=== PATIENT | male | born 1975 | race Caucasian/White ===

== ENCOUNTER 2020-11-22 13:50 | Inpatient (IN) | payer BC, SELFPAY ==
[2020-11-22 13:51] VITALS: BMI 31.6
[2020-11-22 14:01] VITALS: BMI 31.7
[2020-11-22 14:06] VITALS: BP 146/85; PULSE 94; RESP 18; TEMP 37.4; O2SAT 95
[2020-11-22] MEDS: 0.9% Saline Lock 10 ML Syringe IV (15:41)
[2020-11-22] MEDS: 0.9% Normal Saline 1,000 ML 100 ML IV (15:42)
--- NOTE | 2020-11-22 16:53 | HP.PCM_ITS ---
History and Physical Date of Admission: 11/22/20 Chief Complaint: abdominal pain History of Present Illness: Diony Cordova is a 45 year old male with history of multiple chronic medical problems who presents with Abdominal Pain and Diarrhea. ? - Symptoms began Wednesday (2 days ago). - Severity: 04/22 - Timing: constant - Quality: sharp and pressure - Abdominal Pain is exacerbated by palpation Diarrhea is exacerbated by nothing. - Abdominal Pain and Diarrhea is not exacerbated by rest. - Symptoms are associated with chills. - Symptoms are not associated with chest pain, fever, nausea, rash, shortness of breath, URI symptoms, vomiting, dark or bloody stools, dysuria, hematuria, testicular pain, leg pain, back pain. - Improved by nothing. - Not improved by anything. Patient presents stating that he started with sharp lower abdominal pain on Wednesday feeling like he needed to have a bowel movement and has been having multiple episodes of watery, non-bloody diarrhea and persistent lower abdominal pain since. He denies any known sick contacts. No recent travel. No fevers, but does feel chilled. No suspicious food intake. He has not been prescribed antibiotics recently, but he notes that he thought he had a left ear infection as he was having crackling in his left ear and was evaluated for his symptoms and told he had an eustachian tube dysfunction. He was told he did not have an ear infection and was started on nasal spray. He states he did take a dose of his daughter's Augmentin on Wednesday hours prior to symptoms starting, he states he took another dose of Augmentin on , as well. He states his ear is feeling better, and is not having any symptoms with his ear currently. No previous abdominal surgeries. Denies any dysuria or hematuria. No testicu lar pain. CT abdomen pelvis 11/22/2020: RESULT: ?Liver: No mass. A 0.3 cm hypoattenuating focus in the superior segment 4 a and 5 are too small to adequately characterize but statistically benign. ?Biliary: No bile duct dilation. Gallbladder is unremarkable. ?Spleen: Mild splenomegaly of 14.5 cm in AP diameter. ?Pancreas: No mass or duct dilation. ?Adrenals: No mass. ?Kidneys: Symmetric nephrograms. No hydronephrosis or nephrolithiasis. ?GI tract: No dilation or wall thickening. Appendix is normal. Focal inflammatory changes associated to the diverticula in the sigmoid colon at the mid pelvis. There is wall thickening with mild loculated gas adjacent to the segment of wall thickening suggesting microperforation with phlegmonous changes and early 1.5 cm abscess. ?Lymph nodes: No abdominal or pelvic lymphadenopathy. ?Mesentery/Peritoneum: No ascites or mass. ?Retroperitoneum: No mass. ?Vasculature: The celiac axis and SMA are patent. The portal vein and branches, splenic vein, SMV, and hepatic veins are patent. ?Pelvis: No mass, ascites or fluid collection. ?Bones/Soft Tissues: No acute osseous abnormalities. ?Lower thorax: No consolidation or pleural effusion. Minimal hypoventilation in the posterior lung bases. Visualized portions of the heart are unremarkable. ?IMPRESSION: ?Focal acute diverticulitis of the sigmoid colon with mild adjacent phlegmonous changes and small early abscess formation. Past Medical History: elevated cholesterol BMI 31 Past Surgical History: denies Medications: none Allergies: Has no known drug allergies Social history: TOB use denies Review of Systems: Constitutional: Positive for chills. Negative for fever. HENT: Negative for ear discharge, ear pain, sore throat and trouble swallowing. Respiratory: Negative for shortness of breath. Cardiovascular: Negative for chest pain. Gastrointestinal: Positive for abdominal pain and diarrhea. Negative for anal bleeding, blood in stool, constipation, nausea and vomiting. Genitourinary: Negative for dysuria, flank pain, hematuria and testicular pain. Musculoskeletal: has arthritis of knee, occasional back pain but none presently. Skin: Negative for rash. Neurological: has carpal tunnel symptoms, Negative for syncope, weakness and numbness. Psychiatric/Behavioral: Negative for agitation and confusion. Physical examination: BP 136/78 Pulse 86 Temp 97.6 Resp 16 Wt 204 lb (92.5kg) SpO2 98% O2 Therapy: Room Air Constitutional: General: He is not in acute distress. Appearance: He is not ill-appearing, toxic-appearing or diaphoretic. HENT: Head: Normocephalic and atraumatic. Right Ear: Tympanic membrane, ear canal and external ear normal. Left Ear: Tympanic membrane, ear canal and external ear normal. Mouth/Throat: Mouth: Mucous membranes are moist. Eyes: General: No scleral icterus. Conjunctiva/sclera: Conjunctivae normal. Cardiovascular: Rate and Rhythm: Normal rate and regular rhythm. Pulses: Normal pulses. Pulmonary: Effort: Pulmonary effort is normal. Breath sounds: Normal breath sounds. Abdominal: General: Abdomen is flat. Bowel sounds are normal. There is no distension. Palpations: Abdomen is soft. Tenderness: There is abdominal tenderness in the right lower quadrant, suprapubic area and left lower quadrant. There is rebound. There is no right CVA tenderness, left CVA tenderness or guarding. Positive signs include McBurney's sign. Negative signs include Mckeon's sign. Musculoskeletal: Right lower leg: No edema. Left lower leg: No edema. Skin: General: Skin is warm and dry. Capillary Refill: Capillary refill takes less than 2 seconds. Findings: No rash. Neurological: General: No focal deficit present. Mental Status: He is alert and oriented to person, place, and time. GCS: GCS eye subscore is 4. GCS verbal subscore is 5. GCS motor subscore is 6. Psychiatric: Mood and Affect: Mood normal. Behavior: Behavior normal. Labs reviewed. White count is 16.34, lactate is normal at 0.7 BMP shows a glucose of 104, otherwise no acute findings. UA shows no signs of infection Impression: diverticulitis with abscess Discussion/Plan: I have discussed the above with the patient. No surgical intervention required at this point. I will admit patient to hospital for - IV antibiotics, clear liquid diet, pain control with narcotics and serial abdominal examinations I have answered all questions to the patient?s satisfaction and the patient has no further questions.
[2020-11-22] MEDS: Acetaminophen 325 MG Tablet 650 MG PO (18:50)
[2020-11-22 20:00] VITALS: BP 140/78; PULSE 82; RESP 18; TEMP 37.2; O2SAT 96
[2020-11-23 02:03] VITALS: BP 116/78; PULSE 81; RESP 18; TEMP 36.6; O2SAT 98
[2020-11-23] MEDS: 0.9% Normal Saline 1,000 ML 100 ML IV ×2 (02:08→12:01)
[2020-11-23 10:29] VITALS: BP 148/94; PULSE 82; RESP 18; TEMP 36.8; O2SAT 97
[2020-11-23] MEDS: Acetaminophen 325 MG Tablet 650 MG PO ×2 (10:36→17:30)
--- NOTE | 2020-11-23 12:07 | PCM.PN.SRG ---
Subjective: patient feels slightly improved, feeling hungry, bowel movements more formed - Physical Exam Vitals/I&O's: Vital Signs Temp Pulse Resp BP Pulse Ox 98.2 F 82 18 148/94 H 97 11/23/20 10:29 11/23/20 10:29 11/23/20 10:29 11/23/20 10:29 11/23/20 10:29 Oxygen Delivery Method Room Air Weight: 91.8 kg Body Mass Index (BMI) 31.6 Intake and Output for Last 24 Hours 11/21/20 11/22/20 11/23/20 23:59 23:59 23:59 Intake Total 0 / 0 2745.58 / 2745.58 Balance 0 / 0 2745.58 / 2745.58 General: Alert, Oriented x3 Oral: Moist Mucosa Neck: Supple Lungs: Normal air movement Abdomen: Soft, - - much less tender than yesterday, but still with rebound, less guarding Current Medications Acetaminophen (Acetaminophen 325 Mg Tablet) 650 mg PO Q4H PRN PRN PRN Reason: Pain Score 1-10 Last Admin: 11/23/20 10:36 Dose: 650 mg Documented by: Hydrocodone Bitart/Acetaminophen (Hydrocodone Bitartrate/Apap 5/325 Tablet) 1 tablet PO Q4H PRN PRN PRN Reason: Pain Score 1-5 Piperacillin Sod/Tazobactam (Sod 3.375 gm/ Sodium Chloride) 50 mls @ 12.5 mls/hr IV Q8 ELSY Last Infusion: 11/23/20 10:00 Dose: Infused Documented by: Sodium Chloride () 250 mls @ 15 mls/hr IV .[id number] PRN PRN Reason: Saline Flush Last Infusion: 11/23/20 05:58 Dose: 0 mls/hr Documented by: Sodium Chloride () 250 mls @ 15 mls/hr IV .[id number] PRN PRN Reason: Additional IVPB Infusion Sodium Chloride () 1,000 mls @ 100 mls/hr IV .Q10H ELSY Last Admin: 11/23/20 12:01 Dose: 100 mls/hr Documented by: Melatonin (Melatonin 3 Mg Tablet) 3 mg PO QHS PRN PRN Reason: INSOMNIA Morphine Sulfate (Morphine 4 Mg/Ml Syringe) 4 mg IV Q2H PRN PRN PRN Reason: Pain Score 6-10 Ondansetron HCl (Ondansetron 4 Mg/2 Ml Vial) 4 mg IV Q8H PRN PRN PRN Reason: NAUSEA/VOMITING Sodium Chloride (0.9% Saline Lock 10 Ml Syringe) 10 - 40 ml IV UD PRN PRN Reason: SALINE FLUSH Last Admin: 11/22/20 15:41 Dose: 10 ml Documented by: Medical Necessity - Tobacco Use Smoking Status: Never smoker Tobacco Use: Non-smoker Assessment/Plan Impression: acute diverticulitis with abscess Plan: continue IV antibiotics - hospitalize through the night - will reassess tomorrow morning patient is requiring minimal pain control continue clear liquid diet patient is encouraged to ambulate, can walk around in the hallways
[2020-11-23 13:45] VITALS: BP 145/79; PULSE 81; RESP 16; TEMP 36.9; O2SAT 97
[2020-11-23 17:22] VITALS: BP 128/99; PULSE 80; RESP 18; TEMP 36.7; O2SAT 97
--- NOTE | 2020-11-23 17:39 | CM.UR ---
RN CM Assessment Introduced role of RN CM to patient.? Patient is alert, oriented and able?to participate in RN CM Assessment. ?Care providers, pharmacy, and demographics verified. Presentation: abd pain Admit Dx: diverticulitis Re-Admit: none Barriers/Issues: none PCP: Dr. ford Specialists: None Preferred Pharmacy: [facility] Insurance: [employer] Rx Benefit:? Yes ?LNOK: , [place] LW/HPOA: No, declined additional information. Living Arrangements:? first floor ADL?s: independent Transportation: self and DME: None HHC: None SNF: None Goal: Home, denies needs. DC PLAN: Home, no need anticipated. Alerted patient that case management will remain available should any needs arise. Verb understanding. Theodora Degroot RN, CCM.
[2020-11-23 21:11] VITALS: BP 139/83; PULSE 61; RESP 18; TEMP 36.7; O2SAT 99
[2020-11-24] MEDS: 0.9% Normal Saline 1,000 ML 100 ML IV (00:04)
[2020-11-24 04:11] VITALS: BP 139/83; PULSE 79; RESP 18; TEMP 36.8; O2SAT 99
[2020-11-24 09:20] VITALS: BP 136/97; PULSE 77; RESP 18; TEMP 36.5; O2SAT 97
--- NOTE | 2020-11-24 11:58 | PCM.PN.SRG ---
Subjective: patient feels much improved, has minimal tenderness to pressure applied to area, is able to bounce up and down without abdominal pain, feels hungry, wants to go home - Physical Exam Vitals/I&O's: Vital Signs Temp Pulse Resp BP Pulse Ox 97.7 F L 77 18 136/97 H 97 11/24/20 09:20 11/24/20 09:20 11/24/20 09:20 11/24/20 09:20 11/24/20 09:20 Oxygen Delivery Method Room Air Weight: 91.8 kg Body Mass Index (BMI) 31.6 Intake and Output for Last 24 Hours 11/22/20 11/23/20 11/25/20 23:59 23:59 00:59 Intake Total 0 / 0 4769.08 / 4769.08 700 / 700 Balance 0 / 0 4769.08 / 4769.08 700 / 700 General: Alert, Oriented x3 HEENT: Atraumatic Oral: Moist Mucosa Neck: Supple Lungs: Normal air movement Abdomen: Soft - still with minimal tenderness, but no guarding Current Medications Acetaminophen (Acetaminophen 325 Mg Tablet) 650 mg PO Q4H PRN PRN PRN Reason: Pain Score 1-10 Last Admin: 11/23/20 17:30 Dose: 650 mg Documented by: Hydrocodone Bitart/Acetaminophen (Hydrocodone Bitartrate/Apap 5/325 Tablet) 1 tablet PO Q4H PRN PRN PRN Reason: Pain Score 1-5 Piperacillin Sod/Tazobactam (Sod 3.375 gm/ Sodium Chloride) 50 mls @ 12.5 mls/hr IV Q8 ELSY Last Infusion: 11/24/20 09:50 Dose: Infused Documented by: Sodium Chloride () 250 mls @ 15 mls/hr IV .[id number] PRN PRN Reason: Saline Flush Last Infusion: 11/23/20 21:20 Dose: 0 mls/hr Documented by: Sodium Chloride () 250 mls @ 15 mls/hr IV .[id number] PRN PRN Reason: Additional IVPB Infusion Sodium Chloride () 1,000 mls @ 100 mls/hr IV .Q10H ELSY Last Admin: 11/24/20 00:04 Dose: 100 mls/hr Documented by: Melatonin (Melatonin 3 Mg Tablet) 3 mg PO QHS PRN PRN Reason: INSOMNIA Morphine Sulfate (Morphine 4 Mg/Ml Syringe) 4 mg IV Q2H PRN PRN PRN Reason: Pain Score 6-10 Ondansetron HCl (Ondansetron 4 Mg/2 Ml Vial) 4 mg IV Q8H PRN PRN PRN Reason: NAUSEA/VOMITING Sodium Chloride (0.9% Saline Lock 10 Ml Syringe) 10 - 40 ml IV UD PRN PRN Reason: SALINE FLUSH Last Admin: 11/22/20 15:41 Dose: 10 ml Documented by: Medical Necessity - Tobacco Use Smoking Status: Never smoker Tobacco Use: Non-smoker Assessment/Plan Impression: acute diverticulitis with abscess Plan: will d/c to home continue with po antibiotics stay on liquid type diet for a couple of days and then advance slowly, low residue diet for two weeks consider colonoscopy in future
--- NOTE | 2020-11-24 12:01 | DS.PCM_ITS ---
Discharge Summary Date of Admission: 11/22/20 Date of Discharge: 11/24/20 Summary: 45 y/o WM presents with sudden onset of left lower quadrant abdominal pain last week, not improving and therefore presented to [facility] ED. Found to have elevated WBC with CT scan revealing acute diverticulitis with small abscess. Patient wanted to be admitted at [facility] and was accepted for admission. Treated with IV Zosyn for at least two days and liquid diet. Pain resolved by Hospital day #2. Discharged on po antibiotics and liquid diet to advance slowly at home - Physical Exam Vitals/I&O's: Vital Signs Temp Pulse Resp BP Pulse Ox 97.7 F L 77 18 136/97 H 97 11/24/20 09:20 11/24/20 09:20 11/24/20 09:20 11/24/20 09:20 11/24/20 09:20 Oxygen Delivery Method Room Air Weight: 91.8 kg Body Mass Index (BMI) 31.6 Intake and Output for Last 24 Hours 11/22/20 11/23/20 11/25/20 23:59 23:59 00:59 Intake Total 0 / 0 4769.08 / 4769.08 700 / 700 Balance 0 / 0 4769.08 / 4769.08 700 / 700 Current Medications Acetaminophen (Acetaminophen 325 Mg Tablet) 650 mg PO Q4H PRN PRN PRN Reason: Pain Score 1-10 Last Admin: 11/23/20 17:30 Dose: 650 mg Documented by: Hydrocodone Bitart/Acetaminophen (Hydrocodone Bitartrate/Apap 5/325 Tablet) 1 tablet PO Q4H PRN PRN PRN Reason: Pain Score 1-5 Piperacillin Sod/Tazobactam (Sod 3.375 gm/ Sodium Chloride) 50 mls @ 12.5 mls/hr IV Q8 ELSY Last Infusion: 11/24/20 09:50 Dose: Infused Documented by: Sodium Chloride () 250 mls @ 15 mls/hr IV .[id number] PRN PRN Reason: Saline Flush Last Infusion: 11/23/20 21:20 Dose: 0 mls/hr Documented by: Sodium Chloride () 250 mls @ 15 mls/hr IV .[id number] PRN PRN Reason: Additional IVPB Infusion Sodium Chloride () 1,000 mls @ 100 mls/hr IV .Q10H ELSY Last Admin: 11/24/20 00:04 Dose: 100 mls/hr Documented by: Melatonin (Melatonin 3 Mg Tablet) 3 mg PO QHS PRN PRN Reason: INSOMNIA Morphine Sulfate (Morphine 4 Mg/Ml Syringe) 4 mg IV Q2H PRN PRN PRN Reason: Pain Score 6-10 Ondansetron HCl (Ondansetron 4 Mg/2 Ml Vial) 4 mg IV Q8H PRN PRN PRN Reason: NAUSEA/VOMITING Sodium Chloride (0.9% Saline Lock 10 Ml Syringe) 10 - 40 ml IV UD PRN PRN Reason: SALINE FLUSH Last Admin: 11/22/20 15:41 Dose: 10 ml Documented by:
--- NOTE | 2020-11-24 12:09 | PCM.DC.GS ---
Discharge Diet: - - clear liquid diet for a couple of days, advance to light diet over a couple of days, low fiber diet for two weeks, drink plenty of water Allergies/Adverse Reactions: Allergies No Known Allergies Allergy (Verified 11/22/20 14:00) Medications to take at Discharge Amoxicillin/Potassium Clav [Augmentin 875-125 Tablet] 1 ea PO BID 10 Days #20 tab 11/24/20 The following prescriptions were given: Amoxicillin/Potassium Clav [Augmentin 875-125 Tablet] 1 ea PO BID 10 Days #20 tab Transmission Status: Pending to [facility] Primary Care Physician: Soto Ibrahim MD [Primary Care Provider] - Test Results: Test results from this visit will be discussed in further detail at your follow-up appointment, if applicable. Please Follow Up With: Esther Mooney MD - call When: to be seen on Wednesday, please call for time, thank you
[2020-11-24 12:22] VITALS: BP 144/90; PULSE 67; RESP 16; TEMP 36.7; O2SAT 97
== END 2020-11-24 12:35 | disposition home or self-care (01) | DRG 392 ==
LOC: MS3 14:21
PROVIDERS: Admitting Provider Surgery; PCP Family Medicine; Referring Provider Surgery; Visit Provider Surgery
DX: K57.20 Diverticulitis of large intestine with perforation and abscess without bleeding (principal)
CPT/HCPCS: J7030; J7050; A4216

== ENCOUNTER 2021-05-13 18:20 | Emergency (ER) | payer BC, SELFPAY ==
[2021-05-13 18:22] VITALS: BP 164/105; PULSE 93; RESP 18; TEMP 35.6; O2SAT 97; BMI 31.7
--- NOTE | 2021-05-13 19:46 | EDS_ITS ---
HPI History of Present Illness Chief Complaint: General Illness Informant: patient Onset/Context/Timing Onset: Today Timing: Continuous Worsened by: Nothing Relieved by: Nothing Narrative Narrative: Patient presents requesting COVID-19 test. Patient states he was exposed to COVID-19 approximately 6 days ago. Currently, patient denies any sy mptoms. Patient denies any fevers or chills. Patient denies any nausea or vomiting. Patient denies any cough. Patient denies any loss of taste or smell. Patient states that family members have had upper respiratory symptoms. PFSH PFSH no medical history Allergy/AdvReac Type Severity Reaction Status Date / Time No Known Allergies Allergy Verified 05/13/21 18:21 no surgical history Social History Smoking Status: Never smoker ROS ROS ED Constitutional Constitutional ED: Denies chills or fever(s) Eyes Eyes: Denies blurry vision or change in vision ENT ENT ED: Denies rhinorrhea or sore throat Cardiovascular Cardiovascular: Denies chest pain or palpitations Respiratory/Chest Respiratory/Chest: Denies cough or dyspnea Gastrointestinal Gastrointestinal: Denies nausea or vomiting Genitourinary Genitourinary ED: Denies dysuria or hematuria Musculoskeletal Musculoskeletal: Denies back pain or neck pain Integumentary Denies abscess or rash Neurologic Neurologic: Denies headache(s) or weakness Allergic/Immunologic Allergic/Immunologic ED: Denies mouth swelling or urticaria EXAM Physical Exam Const Vital Signs: 05/13/21 18:22 Temperature 96.1 F L Temperature Source Temporal Pulse Rate 93 Respiratory Rate 18 Blood Pressure 164/105 H Blood Pressure Mean 124 Pulse Ox 97 Oxygen Delivery Method Room Air Positive well nourished and well developed General Appearance ED: well developed HEENT Reports moist mucous membranes Neck supple and no JVD Resp normal respiratory effort and clear to auscultation bilaterally Cardio regular rate, regular rhythm and no murmurs GI normal to inspection, nondistended, normoactive bowel sounds and non-tender Palpation: soft Extremity normal to inspection Neuro oriented x3, CN's II-XII intact bilaterally and no sensory deficits noted Sensorium / Orientation: alert Motor Exam: strength 5/5 throughout Psych mental status grossly normal Skin no rashes or lesions noted MDM MDM MDM Narrative Medical decision making narrative: COVID-19 rapid antigen was obtained and was negative. Patient was advised of his findings. Patient was instructed to follow-up with his primary care physician in 5 to 7 days. Patient understood and was agreeable with the plan. All questions were answered. Discharge Plan Triage Chief Complaint: General Illness ED Provider: Anson Guadalupe Dx/Rx/DC Orders Clinical Impression: Exposure to COVID-19 virus Instructions: Coronavirus Disease 2019 (COVID-19): Overview Primary Care Provider: Soto Ibrahim Referrals: Soto Ibrahim MD [Primary Care Provider] - 5-7 Days Disposition Disposition: Home, Self Care
== END 2021-05-13 20:16 | disposition home or self-care (01) ==
PROVIDERS: Emergency Provider Emergency Medicine; PCP Family Medicine
DX: Z20.822 Contact with and (suspected) exposure to COVID-19 (principal)
CPT/HCPCS: 87426; 99282

== ENCOUNTER 2024-01-04 20:43 | Emergency (ER) | payer OTHER, SELFPAY ==
[2024-01-04 20:44] VITALS: BP 179/113; PULSE 66; RESP 18; TEMP 36.3; O2SAT 97; BMI 30.7
--- NOTE | 2024-01-04 21:09 | EDS_ITS ---
HPI History of Present Illness Chief Complaint: Eye Problem Narrative Narrative: 48-year-old male presents to the emergency department with right eye irritation. He states I think I have pinkeye. He states he awoke in the middle the night and felt his eye was dry and irritated. He rubbed his eye, and put Neosporin around it. Throughout the day, its gotten progressively worse where he has had redness to his eye and his eye is watering more. He noticed some eyelid swelling when he woke up, that has worsened throughout the day. He denies any loss of vision. No recent trauma. PFSH PFSH Allergy/AdvReac Type Severity Reaction Status Date / Time No Known Allergies Allergy Verified 01/04/24 20:46 Social History Smoking Status: Never smoker ROS ROS ED ROS Narrative Constitutional: No fever, no chills. HEENT: No sore throat. No neck pain. No loss of vision. No rhinorrhea. Positive watery right eye with irritation, positive redness. Positive swelling upper and lower lids. Cardiovascular: No chest pain. No palpitations. No pedal edema. Respiratory: No cough, no shortness of breath. Abdominal: No abdominal pain. No nausea. No vomiting. Genitourinary: No dysuria. No hematuria. Musculoskeletal: No myalgias. No arthralgias. Neurologic: No headaches. No dizziness. No lightheadedness. Skin: No rash. No change in color. Psychiatric: No depression. No anxiety. EXAM Physical Exam Narrative Exam Narrative: Afebrile. Vital signs noted. HEENT: Normocephalic. Atraumatic. PERRL, EOMI. positive watering of right eye but no evidence of exudate. Positive conjunctival injection diffusely. Neck soft and supple. No point tenderness or step off. Cardiovascular: Regular rate and rhythm. No murmurs, rubs, or gallops appreciated. Respiratory: No tachypnea. Lungs clear to auscultation bilaterally. Gastrointestinal: Abdomen soft, nontender, with normoactive bowel sounds. No rebound or guarding. Neurological: Awake. Alert. Nonfocal, nonlateralizing. Skin: No rash. Normal color. No pallor. Musculoskeletal: No pedal edema. Full range of motion extremities. Const Vital Signs: 01/04/24 20:44 Temperature 97.4 F L Temperature Source Temporal Pulse Rate 66 Respiratory Rate 18 Blood Pressure 179/113 H Blood Pressure Mean 135 Pulse Ox 97 Oxygen Delivery Method Room Air MDM MDM MDM Narrative Medical decision making narrative: In the differential diagnosis would be viral conjunctivitis versus corneal abrasion. I have low suspicion for glaucoma based on the patient's physical exam and his reactive pupils. Additionally, he is sitting in a well lit room and using his cellular telephone, staring at the screen. Tetracaine will be instilled in the right eye and fluorescein. Under examination, there is no evidence of dye uptake, no dye streaming. Negative Yeny sign. I feel the globe rupture has been ruled out, and I see no evidence of a corneal abrasion. At this point in time, he was given erythromycin ointment. I have discussed with him that this may cause irritation and that patient viral conjunctivitis does not necessarily require ointment. He does prefer treatment with ointment. I referred him to ophthalmology for follow-up in 3 to 5 days if not improving. Return instructions to the emergency department were reviewed. Disposition is discharged home in stable condition. Discharge Plan Triage Chief Complaint: Eye Problem ED Provider: Ezekiel Ayers Dx/Rx/DC Orders Clinical Impression: [place] eye disease of right eye Instructions: ED Conjunctivitis, Nonspecific Primary Care Provider: Soto Ibrahim Referrals: Cali Sanchez MD [Med Staff - Active Staff] - 3-5 Days if not improving Soto Ibrahim MD [Primary Care Provider] - Activity Restrictions/Additional Instructions: Warm compresses to right eye. Follow-up with ophthalmology in 3 to 5 days. Disposition Disposition: Home, Self Care
[2024-01-04] MEDS: Fluorescein 1 MG STRIP 1 STRIP OPHTHALMIC (21:21)
[2024-01-04] MEDS: Tetracaine 0.5% Ophthalmic Bottle 1 DRP OPHTHALMIC (21:21)
[2024-01-04] MEDS: Erythromycin Ophthalmic (NSY) 1 GM OPTH.TUBE 1 APPLIC RIGHT EYE (22:00)
== END 2024-01-04 22:05 | disposition home or self-care (01) ==
PROVIDERS: Emergency Provider Emergency Medicine; PCP Family Medicine; Visit Provider Emergency Medicine
DX: H10.021 Other mucopurulent conjunctivitis, right eye (principal)
CPT/HCPCS: 99284